=== PATIENT | male | born 1970 | race African-American/Black ===

== ENCOUNTER 2016-06-11 10:58 | Emergency (ER) | payer MEDICAID ==
[~2016-06-11] VITALS: Ht 177.8 cm; Wt 109.1 kg
[~2016-06-11 10:58] MED LIST: AMLO5TAB22 PO; CYCL-36 PO; HYDR-3533 PO; LISI-363 PO; NAPR500 PO
[2016-06-11 11:00] VITALS: BP 146/84; PULSE 108; RESP 20; TEMP 98.7; O2SAT 94
[2016-06-11] MEDS ORDERED: AMLO5TAB2 PO (11:06)
[2016-06-11] MEDS ORDERED: OMEP20TA PO (11:06)
[2016-06-11] MEDS ORDERED: METO50TA PO (11:06)
--- NOTE | 2016-06-11 11:24 | PD ---
HPI Chief Complaint: Cold / Flu Symptoms Time Seen by Provider: 11:22 Travel History International Travel<30 days: No Contact w/Intl Traveler<30days: No Traveled to known affect area: No History of Present Illness HPI 45-year-old male with history of hypertension presents to emergency department for evaluation of cough, chest congestion, nausea, vomiting, diarrhea, fever, chills, body aches worsening over the last 3 days. Patient states he has had fever with MAXIMUM TEMPERATURE of 102 last evening. Cough is nonproductive. He has been taking Tylenol and [id number] antitussive with no relief of his symptoms. Denies any chest pain or tightness. No focal deficits or weakness.. Reports no hematemesis or hematochezia. He has no other symptoms to report this time. PFSH Past Medical History Arthritis: No Asthma: No Blood Disorders: No Anxiety: Yes Depression: Yes Heart Rhythm Problems: No Cancer: No Cardiac Catheterization: Yes Cardiovascular Problems: Yes (HTN) High Cholesterol: Yes Chest Pain: No Congestive Heart Failure: No COPD: No Cerebrovascular Accident: No Diabetes: No Diminished Hearing: No Gastrointestinal Disorders: Yes GERD: Yes Genitourinary: No Headaches: Yes Hepatitis: No Hiatal Hernia: No Hypertension: Yes Musculoskeletal: Yes (FACIAL MUSCLE SPASM 2009 = NO LONGER HAPPENS) Neurologic: Yes Psychiatric: No Reproductive: No Respiratory: Yes Migraines: Yes Myocardial Infarction: No Radiation Therapy: No Seizures: No Ulcer: No Tetanus Vaccination: < 5 Years Influenza Vaccination: No Past Surgical History AICD: No Appendectomy: No Arteriovenous Shunt: No Cholecystectomy: No Coronary Artery Bypass Graft: No Eye Surgery: No Insulin Pump: No Joint Replacement: No Other Surgery: Yes (MASS FROM LEFT LEG , MASS FROM R SHOULDER) Social History Alcohol Use: Yes (OCCASION) Tobacco Use: Yes (vape smoking) Substance Use: No (QUIT OVER A YEAR AGO COKE AND MARIJUANA) Allergies-Medications (Allergen,Severity, Reaction): Coded Allergies: Aspirin (Verified Allergy, Unknown, 06/11/16) Penicillin (Verified Allergy, Unknown, 06/11/16) Reported Meds & Prescriptions Reported Meds & Active Scripts Active Reported Omeprazole 20 Mg Tab 20 Mg PO DAILY Amlodipine (Amlodipine Besylate) 5 Mg Tab 5 Mg PO DAILY Metoprolol Tartrate 50 Mg Tab 50 Mg PO DAILY Review of Systems Except as stated in HPI: all other systems reviewed are Neg Physical Exam Narrative GENERAL: Well-nourished male patient, ambulatory no acute distress SKIN: Warm and dry. HEAD: Atraumatic. Normocephalic. EYES: Pupils equal and round. No scleral icterus. No injection or drainage. ENT: No nasal bleeding or discharge. Mucous membranes pink and moist. NECK: Trachea midline. No JVD. CARDIOVASCULAR: Tachycardic rate and rhythm. No murmur appreciated. RESPIRATORY: No accessory muscle use. 4 spot clear to cough, to auscultation. Breath sounds equal bilaterally. GASTROINTESTINAL: Abdomen soft, non-tender, nondistended. Hepatic and splenic margins not palpable. MUSCULOSKELETAL: No obvious deformities. No clubbing. No cyanosis. No edema. NEUROLOGICAL: Awake and alert. No obvious cranial nerve deficits. Motor grossly within normal limits. Normal speech. PSYCHIATRIC: Appropriate mood and affect; insight and judgment normal. Data Data Last Documented VS Vital Signs Date Time Temp Pulse Resp B/P Pulse Ox O2 Delivery O2 Flow Rate FiO2 06/11/16 11:18 105 22 94 Room Air 06/11/16 11:00 98.7 146/84 Orders Complete Blood Count With Diff (06/11/16 11:19) Basic Metabolic Panel (Bmp) (06/11/16 11:19) Urinalysis - C+S If Indicated (06/11/16 11:19) Influenzae A/B Antigen (06/11/16 11:19) Chest, Single Ap (06/11/16 11:19) Labs Laboratory Tests Test 06/11/16 06/11/16 11:15 11:25 Urine Color LIGHT-BROWN Urine Turbidity HAZY Urine pH 5.5 Urine Specific [place] 1.038 Urine Protein 100 mg/dL Urine Glucose (UA) NEG mg/dL Urine Ketones TRACE mg/dL Urine Occult Blood MOD Urine Nitrite NEG Urine Bilirubin SMALL Urine Urobilinogen 2.0 MG/DL Urine Leukocyte Esterase NEG Urine RBC 11 /hpf Urine WBC 3 /hpf Urine Squamous Epithelial 1 /hpf Cells Urine Bacteria FEW /hpf Urine Hyaline Casts 2 /lpf Urine Mucus MANY /lpf Microscopic Urinalysis Comment CULT NOT INDICATED White Blood Count 7.5 TH/MM3 Red Blood Count 5.13 MIL/MM3 Hemoglobin 15.7 GM/DL Hematocrit 46.4 % Mean Corpuscular Volume 90.5 FL Mean Corpuscular Hemoglobin 30.6 PG Mean Corpuscular Hemoglobin 33.9 % Concent Red Cell Distribution Width 14.1 % Platelet Count 250 TH/MM3 Mean Platelet Volume 9.0 FL Neutrophils (%) (Auto) 58.8 % Lymphocytes (%) (Auto) 27.7 % Monocytes (%) (Auto) 12.8 % Eosinophils (%) (Auto) 0.3 % Basophils (%) (Auto) 0.4 % Neutrophils # (Auto) 4.4 TH/MM3 Lymphocytes # (Auto) 2.1 TH/MM3 Monocytes # (Auto) 1.0 TH/MM3 Eosinophils # (Auto) 0.0 TH/MM3 Basophils # (Auto) 0.0 TH/MM3 CBC Comment DIFF FINAL Differential Comment Sodium Level 139 MEQ/L Potassium Level 3.5 MEQ/L Chloride Level 106 MEQ/L Carbon Dioxide Level 26.2 MEQ/L Anion Gap 7 MEQ/L Blood Urea Nitrogen 15 MG/DL Creatinine 1.75 MG/DL Estimat Glomerular Filtration 52 ML/MIN Rate Random Glucose 110 MG/DL Calcium Level 9.1 MG/DL MDM Medical Decision Making Medical Screen Exam Complete: Yes Emergency Medical Condition: Yes Medical Record Reviewed: Yes Differential Diagnosis Influenza versus gastroenteritis versus ammonia versus bronchitis versus viral- like illness versus pyelonephritis Narrative Course 45-year-old male presents to emergency for evaluation. Patient appears without distress. Workup was initiated in triage. Once a medical bed becomes available , patient will be transferred and care assumed that provider. Condition: Stable JudiJodieCapricevic ASHLEY Jun 11, 2016 11:24
[2016-06-11 11:54] LABS: AUTOMATED NEUTROPHIL # 4.4 TH/MM3 (1.8-7.7); BASOPHIL % 0.4 % (0.0-2.0); EOSINOPHIL % 0.3 % (0.0-4.0); HEMATOCRIT 46.4 % (39.0-51.0); HEMO FLAGS DIFF FINAL; LYMPH % 27.7 % (9.0-44.0); LYMPHOCYTE # 2.1 TH/MM3 (1.0-4.8); MEAN CELL VOLUME 90.5 FL (80.0-100.0); MEAN CORPUSCULAR HEMOGLOBIN 30.6 PG (27.0-34.0); MEAN CORPUSCULAR HGB CONC 33.9 % (32.0-36.0); MONO % 12.8 % (0.0-8.0); NEUT % 58.8 % (16.0-70.0); PLATELET COUNT 250 TH/MM3 (150-450); RED BLOOD COUNT 5.13 MIL/MM3 (4.50-5.90); RED CELL DISTRIBUTION WIDTH 14.1 % (11.6-17.2); WHITE BLOOD COUNT 7.5 TH/MM3 (4.0-11.0)
[2016-06-11 12:00] LABS: BACTERIA, URINE FEW /hpf; BLOOD, URINE MOD (NEG); COMMENT (UR) CULT NOT INDICATED; CULTURE IF INDICATED CULT NOT INDICATED; GLUCOSE,URINE NEG (NEG); HYALINE CAST, URINE 2 /lpf (RARE); KETONE, URINE TRACE mg/dL (NEG); MUCUS URINE MANY /lpf (OCC); NITRITE,URINE NEG (NEG); PH, URINE 5.5 (5.0-8.5); SQUAMOUS EPITHELIAL CELL URINE 1 /hpf (0-5)
[2016-06-11 12:01] LABS: URINE COLOR LIGHT-BROWN (YELLW/STRAW)
--- NOTE | 2016-06-11 12:04 | RADRPT ---
EXAM DATE/TIME: 06/11/2016 11:39 [facility] COMPARISON: CHEST SINGLE AP, October 27, 2012, 12:41. INDICATIONS : Short of breath, chest pain., fever.. MEDICAL HISTORY : None. SURGICAL HISTORY : None. ENCOUNTER: Initial ACUITY: 1 day PAIN SCORE: 2/10 LOCATION: Bilateral chest FINDINGS: A single view of the chest demonstrates the lungs to be symmetrically aerated without evidence of mas s, infiltrate or effusion. The cardiomediastinal contours are unremarkable. Osseous structures are intact. CONCLUSION: Normal examination. No significant change has occurred. Denilson Mckeon MD on June 11, 2016 at 12:02 Board Certified Radiologist. This report was verified electronically.
[2016-06-11 12:11] LABS: BICARBONATE 26.2 MEQ/L (21.0-32.0); POTASSIUM 3.5 MEQ/L (3.5-5.1)
--- NOTE | 2016-06-11 14:10 | PD ---
Data Data Last Documented VS Vital Signs Date Time Temp Pulse Resp B/P Pulse Ox O2 Delivery O2 Flow Rate FiO2 06/11/16 11:18 105 22 94 Room Air 06/11/16 11:00 98.7 146/84 Orders Complete Blood Count With Diff (06/11/16 11:19) Basic Metabolic Panel (Bmp) (06/11/16 11:19) Urinalysis - C+S If Indicated (06/11/16 11:19) Influenzae A/B Antigen (06/11/16 11:19) Chest, Single Ap (06/11/16 11:19) Labs Laboratory Tests Test 06/11/16 06/11/16 11:15 11:25 Urine Color LIGHT-BROWN Urine Turbidity HAZY Urine pH 5.5 Urine Specific [place] 1.038 Urine Protein 100 mg/dL Urine Glucose (UA) NEG mg/dL Urine Ketones TRACE mg/dL Urine Occult Blood MOD Urine Nitrite NEG Urine Bilirubin SMALL Urine Urobilinogen 2.0 MG/DL Urine Leukocyte Esterase NEG Urine RBC 11 /hpf Urine WBC 3 /hpf Urine Squamous Epithelial 1 /hpf Cells Urine Bacteria FEW /hpf Urine Hyaline Casts 2 /lpf Urine Mucus MANY /lpf Microscopic Urinalysis Comment CULT NOT INDICATED White Blood Count 7.5 TH/MM3 Red Blood Count 5.13 MIL/MM3 Hemoglobin 15.7 GM/DL Hematocrit 46.4 % Mean Corpuscular Volume 90.5 FL Mean Corpuscular Hemoglobin 30.6 PG Mean Corpuscular Hemoglobin 33.9 % Concent Red Cell Distribution Width 14.1 % Platelet Count 250 TH/MM3 Mean Platelet Volume 9.0 FL Neutrophils (%) (Auto) 58.8 % Lymphocytes (%) (Auto) 27.7 % Monocytes (%) (Auto) 12.8 % Eosinophils (%) (Auto) 0.3 % Basophils (%) (Auto) 0.4 % Neutrophils # (Auto) 4.4 TH/MM3 Lymphocytes # (Auto) 2.1 TH/MM3 Monocytes # (Auto) 1.0 TH/MM3 Eosinophils # (Auto) 0.0 TH/MM3 Basophils # (Auto) 0.0 TH/MM3 CBC Comment DIFF FINAL Differential Comment Sodium Level 139 MEQ/L Potassium Level 3.5 MEQ/L Chloride Level 106 MEQ/L Carbon Dioxide Level 26.2 MEQ/L Anion Gap 7 MEQ/L Blood Urea Nitrogen 15 MG/DL Creatinine 1.75 MG/DL Estimat Glomerular Filtration 52 ML/MIN Rate Random Glucose 110 MG/DL Calcium Level 9.1 MG/DL MDM Supervised Visit with CHAY: Yes Narrative Course I reviewed the entirety of his workup and discussed with the patient. He feels improved at this time. His presentation suggests an acute viral syndrome No clinical suspicion of bacterial infection Normal chest x-ray and normal labs Discussed supportive care with him I expect gradual resolution Diagnosis Primary Impression: Acute viral syndrome Additional Impressions: Nausea, vomiting, and diarrhea Myalgia Additional Instruction: The patient was advised to follow up with their physician and return if they worsen. Med/Other Pt SpecificInfo: Other Disposition: 01 DISCHARGE HOME Condition: Stable Ye Alan MD Jun 11, 2016 14:10
== END 2016-06-11 14:36 | disposition home or self-care (01) ==
LOC: NEPA 10:58
DX: B34.9 Viral infection, unspecified (principal); R11.2 Nausea with vomiting, unspecified; R19.7 Diarrhea, unspecified; M79.1 Myalgia
CPT/HCPCS: 71010; 80048; 81001; 85025; 87804; 99284

== ENCOUNTER 2017-12-31 14:04 | Observation (INO) ==
--- NOTE | 2017-12-31 15:28 | XR ---
EXAM DATE: 12/31/2017 3:25 PM EDT AGE/SEX: 47 years / Male INDICATIONS: . Short of breath, cough, and chest tightness. CLINICAL DATA: This is the patient's initial encounter. Patient reports that signs and symptoms have been present for 1 month and indicates a pain score of 5/10. MEDICAL/SURGICAL HISTORY: Hypertension. Coronary artery stent. [place] [facility] [place]. . FINDINGS: AP and lateral views of the chest demonstrate the lungs to be symmetrically aerated without evidence of mass, infiltrate or effusion. The cardiomediastinal contours are unremarkable. Osseous structure s are intact. CONCLUSION: Negative examination. Electronically signed by: Weston Carlson MD 12/31/2017 3:27 PM EDT
--- NOTE | 2017-12-31 18:55 | ED ---
HPI General Chief complaint: Respiratory Symptoms Stated complaint: Difficulty Breathing/Chest Pain Time Seen by Provider: 12/31/17 18:35 Source: patient Mode of arrival: ambulatory Limitations: no limitations History of Present Illness HPI narrative: Patient comes in brought in by his . Who states that he tends to wheeze a lot at nighttime for the past several months. Patient states that his primary care doctor is Dr. santiago Youngblood. However he has not had time to go and see his physician because he works 2 jobs. He presents complaining of chest pressure, that he has been feeling today, since approximately 10 AM this morning, intermittently occurring Location: chest Radiation: non-radiation Severity: mild Severity scale (1-10): 2 Quality: aching Pain Consistency: constant Relieving factors: none Exacerbating factors: none Associated symptoms: denies other symptoms Treatments prior to arrival: none Related Data Home Medications Medication Instructions Recorded Confirmed amlodipine 5 mg PO DAILY 12/31/17 12/31/17 Allergies Allergy/AdvReac Type Severity Reaction Status Date / Time aspirin Allergy Unknown Hives Unverified 12/31/17 14:23 penicillin G Allergy Unknown Hives Unverified 12/31/17 14:23 Review of Systems ROS: all other systems reviewed are negative PMFSH History History Provided By: Patient Social History Social History Smoking Status: Current every day smoker Tobacco Type: Cigarettes How Often Do You Have a Drink Containing Alcohol: Monthly or less Recent Travel in [facility] within the Last 8 Weeks: No Recent Out of Country Travel within the Last 8 Weeks: No Exam Narrative Exam Narrative: GENERAL: Well-nourished, well-developed patient in no apparent distress. SKIN: Warm and dry. HEAD: Atraumatic. Normocephalic. EYES: Pupils equal and round. No scleral icterus. No injection or drainage. ENT: No nasal bleeding or discharge. Mucous membranes pink and moist. NECK: Trachea midline. No JVD. CARDIOVASCULAR: Regular rate and rhythm. no rubs or gallops RESPIRATORY: No accessory muscle use. Clear to auscultation. Breath sounds equal bilaterally. Crackles bibasilarly GASTROINTESTINAL: Abdomen soft, non-tender, nondistended. No rebound or guarding MUSCULOSKELETAL: Extremities without clubbing, cyanosis, or edema. No obvious deformities. NEUROLOGICAL: Awake and alert. No obvious cranial nerve deficits. Motor grossly within normal limits. Five out of 5 muscle strength in the arms and legs. Normal speech. PSYCHIATRIC: Appropriate mood and affect; insight and judgment normal. Course Initial Documented Vital Signs Temperature 97.6 F 12/31/17 14:18 Pulse Rate 69 12/31/17 14:18 Respiratory Rate 18 12/31/17 14:18 Blood Pressure 177/83 H 12/31/17 14:18 Pulse Oximetry 97 12/31/17 14:18 Last Documented Vital Signs Temperature 97.6 F 12/31/17 14:18 Pulse Rate 58 L 12/31/17 19:25 Respiratory Rate 16 12/31/17 19:25 Blood Pressure 140/90 12/31/17 19:25 Pulse Oximetry 98 12/31/17 19:25 Medical Decision Making MDM Narrative Medical decision making narrative: CBC shows no leukocytosis, no anemia, normal platelet count, no evidence of any left shift. D-dimer 0.2 is negative All electrolytes within normal limits, normal kidney liver and pancreatic functions Medical Screen Exam Complete: Yes Emergency Medical Condition: Yes Differential Diagnosis Differential Diagnosis: STEMI versus non-STEMI versus pulmonary embolus versus pneumonia versus congestive heart failure versus pneumothorax versus pericardial effusion Lab Data Result diagrams: 12/31/17 19:00 12/31/17 19:00 Lab Results 12/31/17 12/31/17 12/31/17 Range/Units 19:00 19:00 19:00 WBC 8.0 (4.0-11.0) th/mm3 RBC 5.19 (4.50-5.90) mil/mm3 Hgb 16.0 (13.0-17.0) gm/dL Hct 48.2 (39.0-51.0) % MCV 92.7 (80.0-100.0) fL MCH 30.8 (27.0-34.0) pg MCHC 33.2 (32.0-36.0) % RDW 13.2 (11.6-17.2) % Plt Count 275 (150-450) th/mm3 MPV 8.8 (7.0-11.0) fL Neut % (Auto) 48.4 (16.0-70.0) % Lymph % (Auto) 41.0 (9.0-44.0) % [place] % (Auto) 4.6 (0.0-8.0) % Eos % (Auto) 4.8 H (0.0-4.0) % Baso % (Auto) 1.2 (0.0-2.0) % Neut # (Auto) 3.9 (1.8-7.7) th/mm3 Lymph # (Auto) 3.3 (1.0-4.8) th/mm3 [place] # (Auto) 0.4 (0.0-0.9) th/mm3 Eos # (Auto) 0.4 (0.0-0.4) th/mm3 Baso # (Auto) 0.1 (0.0-0.2) th/mm3 WBC Differential . Differential Comment Auto diff final D-Dimer Quant (PE/DVT) 0.20 (0.00-0.50) mg/L FEU Sodium 141 (136-145) meq/L Potassium 3.7 (3.5-5.1) meq/L Chloride 107 (98-107) meq/L Carbon Dioxide 25.9 (21.0-32.0) meq/L Anion Gap 8 (5-15) meq/L BUN 13 (7-18) mg/dL Creatinine 0.96 (0.60-1.30) mg/dL Estimated GFR Greater than 89 (>89) mL/min Random Glucose 112 H (74-106) mg/dL Calcium 8.6 (8.5-10.1) mg/dL Total Bilirubin 0.4 (0.2-1.0) mg/dL AST 25 (15-37) U/L ALT 37 (12-78) U/L Alkaline Phosphatase 57 (45-117) U/L Total Creatine Kinase 684 H (39-308) U/L CK-MB (CK-2) 6.4 H (0.5-3.6) ng/mL CK-MB (CK-2) % 0.9 (0.0-4.0) % Troponin I Less than 0.02 L (0.02-0.05) ng/mL Total Protein 7.8 (6.4-8.2) g/dL Albumin 3.8 (3.4-5.0) g/dL Lipase 175 (73-393) U/L Imaging Data Radiologist's impression: Chest X-Ray 12/31/17 00:00 CONCLUSION: Negative examination. Chest X-Ray 12/31/17 18:49 CONCLUSION: No evidence of acute cardiopulmonary disease. ECG Data EKG Prior to Arrival: No Attestation: I personally reviewed and interpreted this ECG as follows: Prior ECG tracings: not available for review Interpretation: Normal sinus rhythm, 70 bpm, normal intervals, normal affect T- wave abnormalities noted, no evidence of any ST elevation GA pattern noted. Discharge Plan Discharge Disposition Patient Disposition: 30 Still Patient Discharge Condition Condition: Stable Discharge Details Diagnosis: Chest pain, rule out acute myocardial infarction Physicians Team ED Provider: Francisco Rousseau Primary Care Provider: Billy Rock Rxs /Orders / Referrals /Forms Prescriptions: No Action amlodipine 5 mg Tablet 5 mg PO DAILY RF: 0 Discharge Interventions Interventions: Vital Signs Last Done: 12/31/17 14:18 Status ED Status: With Doctor
[2017-12-31 19:08] LABS: Baso # (Auto) 0.1 th/mm3 (0.0-0.2); Baso % (Auto) 1.2 % (0.0-2.0); Eos # (Auto) 0.4 th/mm3 (0.0-0.4); Eos % (Auto) 4.8 % (0.0-4.0); Hematocrit 48.2 % (39.0-51.0); Lymph # (Auto) 3.3 th/mm3 (1.0-4.8); Mean Corpuscular HGB Conc 33.2 % (32.0-36.0); Mean Corpuscular Hemoglobin 30.8 pg (27.0-34.0); Mean Corpuscular Volume 92.7 fL (80.0-100.0); Mean Platelet Volume 8.8 fL (7.0-11.0); Mono # (Auto) 0.4 th/mm3 (0.0-0.9); Mono % (Auto) 4.6 % (0.0-8.0); Neut # (Auto) 3.9 th/mm3 (1.8-7.7); Neut % (Auto) 48.4 % (16.0-70.0); Platelet Count 275 th/mm3 (150-450); Red Blood Count 5.19 mil/mm3 (4.50-5.90); Red Cell Distribution Width 13.2 % (11.6-17.2)
--- NOTE | 2017-12-31 19:30 | XR ---
EXAM DATE: 12/31/2017 7:08 PM EDT AGE/SEX: 47 years / Male INDICATIONS: Chest pain. CLINICAL DATA: This is the patient's initial encounter. Patient reports that signs and symptoms have been present for 1 week and indicates a pain score of 5/10. MEDICAL/SURGICAL HISTORY: . Hypertension. . Coronary artery stent. COMPARISON: [facility] – [place]ST 2V AP&LAT, 12/31/2017. . FINDINGS: A single AP view of the chest demonstrates the lungs to be symmetrically aerated without evidence of mass, infiltrate or effusion. The cardiomediastinal contours are unremarkable. Osseous structures a re intact. CONCLUSION: No evidence of acute cardiopulmonary disease. Electronically signed by: Ned Olivas MD 12/31/2017 7:28 PM EDT
[2017-12-31 19:32] LABS: Alanine Aminotransferase 37 U/L (12-78); Albumin 3.8 g/dL (3.4-5.0); Anion Gap 8 meq/L (5-15); Aspartate Aminotransferase 25 U/L (15-37); Blood Urea Nitrogen 13 mg/dL (7-18); Calcium 8.6 mg/dL (8.5-10.1); Carbon Dioxide 25.9 meq/L (21.0-32.0); Chloride 107 meq/L (98-107); Glomerular Filtration Rate Greater Than 89 mL/min (>89); Glucose,Random 112 mg/dL (74-106); Lipase 175 U/L (73-393); Potassium 3.7 meq/L (3.5-5.1); Sodium 141 meq/L (136-145)
[2017-12-31 19:36] LABS: Alkaline Phosphatase 57 U/L (45-117); Creatine Kinase 684 U/L (39-308); Total Protein 7.8 g/dL (6.4-8.2)
[2017-12-31 19:48] LABS: CKMB Percent 0.9 % (0.0-4.0); Creatine Kinase MB 6.4 ng/mL (0.5-3.6)
[2017-12-31] MEDS ORDERED: Temazepam 15 MG Capsule PO PRN (20:06)
[2017-12-31] MEDS ORDERED: Morphine Inj 4 MG/ML Vial IV.PUSH PRN (20:06)
[2017-12-31] MEDS ORDERED: Enoxaparin Inj 30 MG/0.3 ML Syringe SQ SCH (20:15)
--- NOTE | 2017-12-31 20:54 | CT ---
EXAM DATE: 12/31/2017 8:33 PM EDT AGE/SEX: 47 years / Male INDICATIONS: Tightness in chest CLINICAL DATA: This is the patient's initial encounter. Patient reports that signs and symptoms have been present for 1 day and indicates a pain score of 5/10. MEDICAL/SURGICAL HISTORY: None. None. RADIATION DOSE: 22.54 CTDI (mGy) COMPARISON: No prior exams available for comparison. TECHNIQUE: Volumetric scanning was performed using a multi-row detector CT scanner during bolus infu francoise of 72 ml Omnipaque 350 (iohexol) nonionic water-soluble contrast as a single exam dose. The sedrick a was post processed with a variety of visualization algorithms including full volume maximum intensi ty projection and sliding thin slab reformation. Using automated exposure control and adjustment of the mA and/or kV according to patient size, radiation dose was kept as low as reasonably achievable t o obtain optimal diagnostic quality images. DICOM format image data is available electronically for review and comparison. FINDINGS: Pulmonary Arteries: No filling defects are seen in the pulmonary arteries out to the subsegmental ve ssels. The left and right pulmonary arteries are normal in diameter. Lung: No infiltrates seen. Effusion: None. Mediastinum: No evidence of mediastinal or hilar adenopathy. Other: The axilla is unremarkable. CONCLUSION: No pulmonary embolus or other acute abnormality. Electronically signed by: Ned Olivas MD 12/31/2017 8:52 PM EDT
[2017-12-31 22:59] LABS: Creatine Kinase 692 U/L (39-308)
[2017-12-31 23:13] LABS: CKMB Percent 0.9 % (0.0-4.0); Creatine Kinase MB 5.9 ng/mL (0.5-3.6)
[2018-01-01 03:28] LABS: Creatine Kinase 542 U/L (39-308)
[2018-01-01 03:40] LABS: Creatine Kinase MB 5.3 ng/mL (0.5-3.6)
--- NOTE | 2018-01-01 08:22 | P.HPCA ---
History of Present Illness Primary Care Physician: Jaciel Rock MD Chief Complaint: Chest tightness History of Present Illness: 47-year-old male with history of hypertension presents emergency room for further evaluation chest tightness and wheezing. Onset over one month. Location left anterior chest. Characterized as tightness. Occasional radiation to sternum. No associated symptoms of nausea, vomiting, or diaphoresis. Occasionally feels like shortness of breath with chest tightness. Also reports intermittent wheezing not always associated during chest tightness episodes. Does not hurt to inhale during episodes. No precipitating or relieving factors. Episodes occur during rest and exertion. Denies similar discomfort in the past. Denies history of wheezing. Smokes 6-7 cigarettes/daily. No history of PE or recent travel. During interview reported left anterior chest tightness, duration 60 seconds, without a association symptoms. 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 Reports cardiac catheterization after abnormal nuclear testing. Gives detail of completing cardiac catheterization at [place]. Does not recall results of cath or if stents where required. Records of cath not found in medical record. Social history Known hypertension. No known diabetes or hyperlipidemia. Unclear history of coronary artery disease. Currently daily smoker of 6-7 daily. Denies alcohol or recreational drug use. Endorses active lifestyle, works 2 jobs, one job in construction. Family history Noncontributory for early onset cardiovascular disease. Mother alive diagnosed with diabetes and hypertension. Father age 40 from brain aneurysm. Internal uncles also early 40s from brain aneurysms. - Diagnosis (1) Chest pain of unknown etiology (2) Hypertension (3) Tobacco use Review of Systems All other systems reviewed negative except as stated in HPI PMFSH - History History Provided By: Patient - Medical History Medical History: Medical History (Last Updated 01/01/18 @ 09:58 by GABI Wright) Anxiety Hypertension Lipoma of neck TIA (transient ischemic attack) Tobacco use - Family History Family History: Family History (Last Updated 01/01/18 @ 09:59 by GABI Wright) Father FH: brain aneurysm Uncle FH: brain aneurysm Uncle FH: brain aneurysm Mother Hypertension Type 2 diabetes mellitus - Social History I have reviewed the patient's Social History: Yes - Tobacco History Second Hand Smoke Exposure: Yes Tobacco Use In Past 30 Days: Yes Smoking Status: Current every day smoker Tobacco Type: Cigarettes Packs Per Day: 0.5 - Alcohol History How Often Do You Have a Drink Containing Alcohol: Never - Substance Use History Substance History: No History of Abuse - Travel History History of Recent Travel: No Recent Travel in the [place] Within the Last 8 Weeks: No Recent Travel Out of the Country Within the Last 8 Weeks: No - Immunization History Tetanus Immunization: >5 Years Hx Influenza Vaccine This Season: No Medications and Allergies Active Medications: Active Medications Enoxaparin Sodium (Lovenox Inj) 30 mg SQ Q24H [facility] Last Admin: 12/31/17 21:02 Dose: 30 mg Morphine Sulfate (Morphine Inj) 2 mg IV.PUSH Q4H PRN PRN Reason: PAIN SCALE 8 TO 10 Last Admin: 12/31/17 23:11 Dose: 2 mg Nitroglycerin (Nitrostat Sl) 0.4 mg SL Q5M PRN PRN Reason: CHEST PAIN Ondansetron HCl (Zofran Inj) 4 mg IV.PUSH Q6H PRN PRN Reason: NAUSEA Sodium Chloride (Ns Flush) 2 ml IV.FLUSH UNSCH PRN PRN Reason: FLUSH AFTER USING IV ACCESS Sodium Chloride (Ns Flush) 2 ml IV.FLUSH BID [facility] Last Admin: 12/31/17 22:05 Dose: Not Given Sodium Chloride (Ns Flush) 2 ml IV.FLUSH PRN PRN PRN Reason: FLUSH AFTER USING IV ACCESS Temazepam (Restoril) 15 mg PO HS PRN PRN Reason: INSOMNIA Last Admin: 12/31/17 23:11 Dose: 15 mg Allergies Allergy/AdvReac Type Severity Reaction Status Date / Time aspirin Allergy Unknown Hives Unverified 12/31/17 14:23 penicillin G Allergy Unknown Hives Unverified 12/31/17 14:23 Home Medications Medication Instructions Recorded Confirmed Type amlodipine 10 mg PO DAILY 12/31/17 01/01/18 History losartan 50 mg PO DAILY 01/01/18 01/01/18 History Exam Vital signs: Vital Signs 12/31/17 14:18 12/31/17 19:03 12/31/17 19:25 Temperature 97.6 F Pulse Rate 69 85 58 L Respiratory Rate 18 16 Blood Pressure 177/83 H 140/90 Pulse Oximetry 97 99 98 12/31/17 22:42 01/01/18 00:00 01/01/18 03:44 Temperature 97.6 F 98.4 F Pulse Rate 58 L 58 L Respiratory Rate 16 17 Blood Pressure 146/75 H 132/68 Pulse Oximetry 98 93 L 95 Intake & Output 12/31/17 01/01/18 01/01/18 18:59 06:59 18:59 Weight 102.058 kg 102.058 kg Other: Weight On Admission 102.058 kg Narrative: GENERAL: Alert WN, WD, NAD, pleasant, obese -[place] male HEAD: NC, AT EYES: Sclera clear, conjunctiva without injection, pupils equal and round ENT: Mucous membranes pink and moist NECK: Supple, no masses, trachea midline CV: RRR, without murmur, rub, gallop, no JVD, S1-S2 no S3-S4. chest wall nontender with palpation. RESP: Clear lungs throughout bilateral, no crackles, wheeze, rhonchi, symmetrical chest rise, nonlabored, able to speak in full sentences ABD: Soft, NT, ND, no masses, positive bowel tones, obese EXT: Pulses +2x4, no dependent edema, right lower extremity GPS device in place MS: Normal tone x4 extremities, nontender, no obvious deformities, full range of motion NEURO: CN II through CN XII grossly intact, motor strength 5/5, gait WNL PSYCH: A+O x3, pleasant affect, appropriate speech, mood, insight and judgment SKIN: Normal turgor, normal texture, no lesions, no rashes, multiple tattoos Results 12/31/17 19:00 12/31/17 19:00 Cardiac Enzymes 12/31/17 12/31/17 01/01/18 Range/Units 19:00 22:00 03:00 AST 25 (15-37) U/L CK-MB (CK-2) 6.4 H 5.9 H 5.3 H (0.5-3.6) ng/mL Troponin I Less than 0.02 L Less than 0.02 L Less than 0.02 L (0.02-0.05) ng/mL CBC 12/31/17 Range/Units 19:00 WBC 8.0 (4.0-11.0) th/mm3 RBC 5.19 (4.50-5.90) mil/mm3 Hgb 16.0 (13.0-17.0) gm/dL Hct 48.2 (39.0-51.0) % Plt Count 275 (150-450) th/mm3 Neut # (Auto) 3.9 (1.8-7.7) th/mm3 Lymph # (Auto) 3.3 (1.0-4.8) th/mm3 [place] # (Auto) 0.4 (0.0-0.9) th/mm3 Eos # (Auto) 0.4 (0.0-0.4) th/mm3 Baso # (Auto) 0.1 (0.0-0.2) th/mm3 Comprehensive Metabolic Panel 12/31/17 Range/Units 19:00 Sodium 141 (136-145) meq/L Potassium 3.7 (3.5-5.1) meq/L Chloride 107 (98-107) meq/L Carbon Dioxide 25.9 (21.0-32.0) meq/L BUN 13 (7-18) mg/dL Creatinine 0.96 (0.60-1.30) mg/dL Calcium 8.6 (8.5-10.1) mg/dL AST 25 (15-37) U/L ALT 37 (12-78) U/L Alkaline Phosphatase 57 (45-117) U/L Total Protein 7.8 (6.4-8.2) g/dL Albumin 3.8 (3.4-5.0) g/dL Intake and Output 12/31/17 01/01/18 01/01/18 22:59 06:59 14:59 Other: Weight 102.058 kg Weight On Admission 102.058 kg EKG interpretations - EKG EKG results cardiology: sinus rhythm, normal axis (nonspecific st t segment changes) Caprini VTE Risk Assessment Caprini VTE Risk Assessment: No/Low Risk (score <= 1) Caprini Risk Assessment Model: Point Value = 1 Point Value = 2 Point Value = 3 Point Value = 5 Age 41-60 Minor surgery BMI > 25 kg/m2 Swollen legs Varicose veins or History of unexplained or recurrent spontaneous Oral contraceptives or hormone replacement Sepsis (< 1 month) Serious lung disease, including pneumonia (< 1 month) Abnormal pulmonary function Acute myocardial infarction Congestive heart failure (< 1 month) History of inflammatory bowel disease Medical patient at bed rest Age 61-74 Arthroscopic surgery Major open surgery (> 45 min) Laparoscopic surgery (> 45 min) Malignancy Confined to bed (> 72 hours) Immobilizing plaster cast Central venous access Age >= 75 History of VTE Family history of VTE Factor V Leiden Prothrombin [id number] Lupus anticoagulant Anticardiolipin antibodies Elevated serum homocysteine Heparin-induced thrombocytopenia Other congenital or acquired thrombophilia Stroke (< 1 month) Elective arthroplasty Hip, pelvis, or leg fracture Acute spinal cord injury (< 1 month) Prophylaxis Regimen: Total Risk Factor Score Risk Level Prophylaxis Regimen 0-1 Low Early ambulation 2 Moderate Order ONE of the following: *Sequential Compression Device (SCD) *Heparin 5000 units SQ BID 3-4 Higher Order ONE of the following medications: *Heparin 5000 units SQ TID *Enoxaparin/Lovenox 40 mg SQ daily (WT < 150 kg, CrCl > 30 mL/min) *Enoxaparin/Lovenox 30 mg SQ daily (WT < 150 kg, CrCl > 10-29 mL/min) *Enoxaparin/Lovenox 30 mg SQ BID (WT < 150 kg, CrCl > 30 mL/min) AND/OR *Sequential Compression Device (SCD) 5 or more Highest Order ONE of the following medications: *Heparin 5000 units SQ TID (Preferred with Epidurals) *Enoxaparin/Lovenox 40 mg SQ daily (WT < 150 kg, CrCl > 30 mL/min) *Enoxaparin/Lovenox 30 mg SQ daily (WT < 150 kg, CrCl > 10-29 mL/min) *Enoxaparin/Lovenox 30 mg SQ BID (WT < 150 kg, CrCl > 30 mL/min) AND *Sequential Compression Device (SCD) Assessment and Plan - Assessment (1) Chest pain of unknown etiology Code(s): R07.89 - Other chest pain Status: Acute Plan: Admitted to chest pain center. ACS ruled out with 3 sets of EKGs and cardiac enzymes. Will be seen and evaluated by Dr. Yonas Lau. Due to risks factors likely will proceed with nuclear cardiac testing, discussed likely further evaluation likely be required upon discharge with his PCP. (2) Hypertension Code(s): I10 - Essential (primary) hypertension Status: Chronic Plan: Continue amlodipine and losartan. Education provided on importance of tight blood pressure control. Instructed to make sure his PCP is aware of family history including multiple men dying in early 40s from cerebral aneurysm. Discussed weight loss, tobacco cessation, and following a low sodium diet. (3) Tobacco use Code(s): Z72.0 - Tobacco use Status: Chronic Plan: Strongly encouraged and stressed the importance of tobacco cessation. Instructed to quit smoking. H&P: Quality - VTE Deep Vein Thrombosis/Pulmonary Embolism Present on Admission: No (2) Hypertension Qualifiers: Hypertension type: unspecified Qualified Code(s): I10 - Essential (primary) hypertension
--- NOTE | 2018-01-01 10:20 | P.PNCA ---
Subjective Interval history: 47-year-old black gentleman presented by the nurse practitioner with a history of wheezing and a cough over the last several months. He has no prior history of asthma or pulmonary disease and has not been a heavy smoker. 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 He apparently also complained of some chest discomfort causing his to insist that he come to the emergency room. He has had this discomfort for several months, it is intermittent, moves about the chest but is predominantly located in the left upper chest area. When he experiences that he usually has it for several minutes at a time and rates it as a 5 out of 10. The character as a tightness almost like a muscle cramp. He also feels somewhat short of breath and sweaty at times but again experiences this frequently with his construction work and cannot relate the discomfort to activities. He states denies that he has a prior history of catheterization in 2008 and gives a very good verbal description by history however we have been unable to locate the records. He cannot remember the investigations director's name but is quite certain that was here at this hospital. He also has a history of hypertension and some TIAs of unclear etiology after full discussion with the nurse practitioner decision was made to evaluate by chest pain center protocol and a nuclear stress test. Physical Exam Vital signs: Vital Signs 12/31/17 14:18 12/31/17 19:03 12/31/17 19:25 Temperature 97.6 F Pulse Rate 69 85 58 L Respiratory Rate 18 16 Blood Pressure 177/83 H 140/90 Pulse Oximetry 97 99 98 12/31/17 22:42 01/01/18 00:00 01/01/18 03:44 Temperature 97.6 F 98.4 F Pulse Rate 58 L 58 L Respiratory Rate 16 17 Blood Pressure 146/75 H 132/68 Pulse Oximetry 98 93 L 95 01/01/18 08:00 01/01/18 09:00 Temperature 97.5 F L Pulse Rate 65 58 L Respiratory Rate 16 Blood Pressure 157/86 H Pulse Oximetry 95 Intake & Output 12/31/17 01/01/18 01/01/18 18:59 06:59 18:59 Weight 102.058 kg 102.058 kg Other: Weight On Admission 102.058 kg Narrative: Well-nourished well-developed black male noted to have a solutions market consultant attached and indicates that he is on probation. Skin warm and dry with tattoos Head normocephalic atraumatic ear started noted Eyes PERRLA EOMI sclera clear Neck supple no JVD masses nodes or bruits Chest clear to auscultation with no rales wheezes or rhonchi Cardiovascular upper pectoralis muscle group is tender to palpation. Abdomen soft nontender no guarding or rebound Extremities no clubbing cyanosis or edema pulses are good Neurologic evaluation is intact with cranial nerves and extremities demonstrating normal function Assessment and Plan - Assessment (1) Chest pain of unknown etiology Code(s): R07.89 - Other chest pain Status: Acute Plan: Admitted to chest pain center. ACS ruled out with 3 sets of EKGs and cardiac enzymes. Will be seen and evaluated by Dr. Yonas Lau. Due to risks factors likely will proceed with nuclear cardiac testing, discussed likely further evaluation likely be required upon discharge with his PCP. (2) Hypertension Code(s): I10 - Essential (primary) hypertension Status: Chronic Plan: Continue amlodipine and losartan. Education provided on importance of tight blood pressure control. Instructed to make sure his PCP is aware of family history including multiple men dying in early 40s from cerebral aneurysm. Discussed weight loss, tobacco cessation, and following a low sodium diet. (3) Tobacco use Code(s): Z72.0 - Tobacco use Status: Chronic Plan: Strongly encouraged and stressed the importance of tobacco cessation. Instructed to quit smoking. (2) Hypertension Qualifiers: Hypertension type: unspecified Qualified Code(s): I10 - Essential (primary) hypertension
[2018-01-01] MEDS ORDERED: amLODIPine 5 MG Tablet PO SCH (10:30)
--- NOTE | 2018-01-01 12:35 | NM ---
EXAM DATE: 01/01/2018 12:23 PM EDT AGE/SEX: 47 years / Male INDICATIONS: Angina. . Substernal chest pain. CLINICAL DATA: This is the patient's initial encounter. Patient reports that signs and symptoms have been present for 1 day and indicates a pain score of 5/10. MEDICAL/SURGICAL HISTORY: None. None. COMPARISON: No prior exams available for comparison. DOSE: 11.0 mCi Tc 99m Myoview at rest 35.0 mCi [id number] at stress REST HEART RATE: 63 BPM TARGET HEART RATE: 149 BPM MAX HEART RATE: 149 BPM REST BLOOD PRESSURE: 128/82 mmHg MAX BLOOD PRESSURE: 188/80 mmHg EJECTION FRACTION: 44 % TECHNIQUE: The patient underwent upright treadmill exercise in the chest pain center. Continuous EC G tracing was monitored during stress. Gated SPECT imaging was performed after stress, and conventio nal SPECT imaging was performed at rest. The examination was performed on a SPECT/CT scanner, both a ttenuation-corrected and non-corrected datasets were reviewed. FINDINGS: Distribution: The maximum perfused segment at stress is in the wall. Perfusion: The pattern of perfusion at stress is within normal limits. Gated Study: There are intact wall motion and wall thickening without hypokinetic or dyskinetic segme nts. The ejection fraction is calculated at 44%. RISK CATEGORY: Intermediate (1-3 % Annual Mortality Rate) CONCLUSION: 1. No reversible perfusion defects. 2. Global hypokinesis with ejection fraction measuring 44%. No focal wall motion abnormalities ident ified. Electronically signed by: Craig Rooney MD 01/01/2018 12:33 PM EDT
[2018-01-01 12:57] VITALS: BP 139/65; PULSE 61; RESP 20; TEMP 97.9; O2SAT 92
--- NOTE | 2018-01-01 13:18 | P.PNCA ---
Subjective Interval history: Nuclear scan shows no evidence of ischemia but a mildly decreased ejection fraction. Patient will be discharged on appropriate medication for follow-up on outpatient basis. Physical Exam Vital signs: Vital Signs 12/31/17 14:18 12/31/17 19:03 12/31/17 19:25 Temperature 97.6 F Pulse Rate 69 85 58 L Respiratory Rate 18 16 Blood Pressure 177/83 H 140/90 Pulse Oximetry 97 99 98 12/31/17 22:42 01/01/18 00:00 01/01/18 03:44 Temperature 97.6 F 98.4 F Pulse Rate 58 L 58 L Respiratory Rate 16 17 Blood Pressure 146/75 H 132/68 Pulse Oximetry 98 93 L 95 01/01/18 08:00 01/01/18 09:00 01/01/18 12:00 Temperature 97.5 F L 97.9 F Pulse Rate 65 58 L 61 Respiratory Rate 16 20 Blood Pressure 157/86 H 139/65 Pulse Oximetry 95 92 L Intake & Output 12/31/17 01/01/18 01/01/18 18:59 06:59 18:59 Weight 102.058 kg 102.058 kg Other: Weight On Admission 102.058 kg Assessment and Plan - Assessment (1) Chest pain of unknown etiology Code(s): R07.89 - Other chest pain Status: Acute Plan: Admitted to chest pain center. ACS ruled out with 3 sets of EKGs and cardiac enzymes. Will be seen and evaluated by Dr. Yonas Lau. Due to risks factors likely will proceed with nuclear cardiac testing, discussed likely further evaluation likely be required upon discharge with his PCP. (2) Hypertension Code(s): I10 - Essential (primary) hypertension Status: Chronic Plan: Continue amlodipine and losartan. Education provided on importance of tight blood pressure control. Instructed to make sure his PCP is aware of family history including multiple men dying in early 40s from cerebral aneurysm. Discussed weight loss, tobacco cessation, and following a low sodium diet. (3) Tobacco use Code(s): Z72.0 - Tobacco use Status: Chronic Plan: Strongly encouraged and stressed the importance of tobacco cessation. Instructed to quit smoking. (2) Hypertension Qualifiers: Hypertension type: unspecified Qualified Code(s): I10 - Essential (primary) hypertension
--- NOTE | 2018-01-01 13:41 | ECG ---
Date Performed: 01/01/2018 Time Performed: 03:56:28 PTAGE: 47 years EKG: SINUS BRADYCARDIA SEPTAL MYOCARDIAL INFARCTION ABNORMAL ECG PREVIOUS TRACING : 12/31/2017 22.11 DOCTOR: Yonas Lau Interpretating Date/Time 01/01/2018 13:41:10
--- NOTE | 2018-01-01 13:42 | ECG ---
Date Performed: 12/31/2017 Time Performed: 22:11:41 PTAGE: 47 years EKG: SINUS BRADYCARDIA BORDERLINE ECG PREVIOUS TRACING : 12/31/2017 14.28 DOCTOR: Yonas Lau Interpretating Date/Time 01/01/2018 13:41:35
--- NOTE | 2018-01-01 13:43 | ECG ---
Date Performed: 12/31/2017 Time Performed: 14:28:59 PTAGE: 47 years EKG: Sinus rhythm NONSPECIFIC T-WAVE ABNORMALITY BORDERLINE ECG No significant change PREVIOUS TRACING : 10/27/2012 11.31 DOCTOR: Yonas Lau Interpretating Date/Time 01/01/2018 13:42:11
--- NOTE | 2018-01-01 13:45 | TR ---
Date Performed: 01/01/2018 Time Performed: 11:03:47 DOCTOR: Yonas Lau DRUG LIST: CLINICAL HISTORY: CHEST PAIN REASON FOR TEST: REASON FOR ENDING: OBSERVATION: CONCLUSION: Nash protocol completed. Stopped sec to reaching target heart rate and leg fatigue. Maximum XL=804 Max HR Achieved=85.0% Maximum AW=922/82 Total Exercise Time=10:45. No reprod chest di [place]. Rare PVC. Baseline nonspecific st segment changes. Peak upsloping st segments. Great exerci se tolerance. Recovery st depression approx 2mm inferiorly. Normal bp response. Nuclear images stella prado COMMENTS: Patient exhibited some mild J-point depression but with upsloping ST segments and mak ges that were nondiagnostic of ischemia. He had good exercise level with no symptoms representing a low probability of significant ischemic coronary artery disease
== END 2018-01-01 15:41 | disposition home or self-care (01) ==
LOC: NEDA 14:04 → NEPD 14:04 → NEDA 22:21 → NEPFCDU 22:31
PROVIDERS: ADMIT Internal Medicine Interventional Cardiology; ATTEND Internal Medicine Interventional Cardiology